=== PATIENT | male | born 1965 | race Caucasian/White ===

== ENCOUNTER 2017-09-07 18:04 | Inpatient (IN) | payer MEDICAID, OTHER ==
[~2017-09-07] VITALS: Ht 170.2 cm; Wt 78.1 kg
[~2017-09-07 18:04] MED LIST: HYDR-2533; MORP1CAP
[2017-09-07 19:54] LABS: Basophils # (auto) 0.3 uL; Eosinophils # (auto) 0 uL; Eosinophils % (auto) 0.2 % (0.0-7.0); Hemoglobin 15.1 g/dL (13.5-17.5); Lymphocytes # (auto) 2.2 uL; Mean Corpuscular Hgb Conc. 34.4 g/dL (32.0-36.0); Monocytes # (auto) 0.3 uL; Neutrophils # (auto) 3.3 uL
[2017-09-07 19:54] LABS: Urine Bacteria NONE SEEN /hpf (None Seen); Urine Blood Negative /uL (Negative); Urine Mucus MODERATE (None Seen); Urine Specific Gravity 1.032 (1.001-1.035); Urine WBC 1 /hpf (0 - 3)
[2017-09-07 19:56] LABS: Hematocrit 43.9 % (41.0-53.0); Lymphocytes % (auto) 35.9 % (10.0-50.0); Monocytes % (auto) 5.1 % (0.0-12.0); Neutrophils % (auto) 53.8 % (37.0-80.0); Nucleated Red Blood Cells % 0.2 %; Platelet Count (auto) 82 10^3/uL (140-450); Red Blood Cells 4.34 10^6/uL (4.5-5.90); Red Cell Distribution Width 15.1 % (11.8-14.3)
[2017-09-07 19:58] LABS: Mean Corpuscular Hemoglobin 34.7 pg (28.0-32.0); Mean Corpuscular Volume 100.8 fL (80.0-100.0)
[2017-09-07 20:15] LABS: Amphetamine Screen, Urine NEGATIVE (NEGATIVE); Barbiturate Scree,Urine NEGATIVE (NEGATIVE); Benzodiazephine Screen, Urine NEGATIVE (NEGATIVE); Cannabinoid Screen, Urine POSITIVE (NEGATIVE); Cocaine Screen, Urine NEGATIVE (NEGATIVE); Opiate Scree,Urine NEGATIVE (NEGATIVE); Phencyclidine Screen, Urine NEGATIVE (NEGATIVE)
[2017-09-07 20:18] LABS: Alanine Aminotransferase 127 U/L (16-61); Albumin 3.1 g/dL (3.4-5.0); Alkaline Phosphatase 103 U/L (45-117); Amylase 61 U/L (25-115); Anion Gap 9 (5-15); Aspartate Aminotransferase 238 U/L (15-37); BUN/Creatinine Ratio 14.3; Bilirubin, Total 3.3 mg/dL (0.2-1.0); Blood Urea Nitrogen 9 mg/dL (7-18); Calcium 7.4 mg/dL (8.5-10.1); Carbon Dioxide 26 mmol/L (21-32); Chloride 103 mmol/L (98-107); GFR African American 172 mL/min; GFR Non-African American 142 mL/min; Glucose 100 mg/dL (74-106); Lipase 229 U/L (73-393); Potassium 4.1 mmol/L (3.5-5.1); Sodium 138 mmol/L (136-145); Total Protein 7.3 g/dL (6.4-8.2)
[2017-09-08] MEDS ORDERED: THIAMINE INJ 100 MG, MULTIPLE VITAMIN 10 ML, FOLIC ACID 1 MG, MAGNESIUM SULF SDV 50% 8 ... IV SCH ×5 (01:15)
[2017-09-08] MEDS ORDERED: HYDROcodone-ACET 10/325MG TAB PO ONE (02:30)
[2017-09-08] MEDS: MORPHINE SULFATE 4 MG/ML SYR/VIAL IV PRN ×3 (06:15→20:44)
[2017-09-08] MEDS: ONDANSETRON HCL 4 MG/2 ML VIAL IV PRN (06:15)
[2017-09-08] MEDS ORDERED: chlordiazePOXIDE HCL 25 MG CAP PO PRN (06:30)
[2017-09-08 07:09] LABS: Basophils # (auto) 0 uL; Eosinophils # (auto) 0 uL; Hemoglobin 13.8 g/dL (13.5-17.5); Monocytes # (auto) 0.5 uL; Nucleated Red Blood Cells % 0.1 %; Platelet Count (auto) 59 10^3/uL (140-450); Red Cell Distribution Width 14.8 % (11.8-14.3)
[2017-09-08 07:11] LABS: Basophils % (auto) 0.4 % (0.0-2.0); Eosinophils % (auto) 0.7 % (0.0-7.0); Hematocrit 39.9 % (41.0-53.0); Lymphocytes # (auto) 2.7 uL; Lymphocytes % (auto) 41.7 % (10.0-50.0); Mean Corpuscular Hemoglobin 34.8 pg (28.0-32.0); Mean Corpuscular Hgb Conc. 34.7 g/dL (32.0-36.0); Mean Corpuscular Volume 100.3 fL (80.0-100.0); Neutrophils # (auto) 3.2 uL; Neutrophils % (auto) 49.2 % (37.0-80.0); Red Blood Cells 3.97 10^6/uL (4.5-5.90); White Blood Cell 6.6 10^3/uL (4.4-10.8)
[2017-09-08 07:28] LABS: Calcium 7.1 mg/dL (8.5-10.1); Potassium 3.9 mmol/L (3.5-5.1)
[2017-09-08] MEDS: LORazepam 2MG/ML-1ML VIAL IV PRN (09:13)
[2017-09-08] MEDS: PANTOPRAZOLE 40 MG/10 ML VIAL IV SCH (09:17)
[2017-09-08] MEDS: FOLIC ACID 1 MG TAB PO SCH (09:17)
[2017-09-08] MEDS: THIAMINE HCL 100 MG TAB PO SCH (09:17)
[2017-09-08] MEDS: MULTIPLE VITAMIN TAB PO SCH (09:17)
[2017-09-08 13:26] LABS: INR 1.3 (0.9-1.15); Prothrombin Time 13.7 sec (9.27-12.13)
[2017-09-08] MEDS ORDERED: FUROSEMIDE 20 MG TAB PO ONE (14:15)
[2017-09-08] MEDS ORDERED: diphenhdrAMINE HCL 50 MG/1 ML VL ONE (14:16)
[2017-09-08] MEDS ORDERED: diphenhdrAMINE HCL 50 MG/1 ML VL IV ONE (15:00)
[2017-09-08] MEDS ORDERED: MORPHINE SULFATE INJECTION 1 ML ONE ×2 (16:20→20:38)
[2017-09-08 17:32] VITALS: BP 120/82
[2017-09-08 17:42] VITALS: BP 120/82
[2017-09-08 22:00] VITALS: BP 138/81
[2017-09-09] MEDS ORDERED: MORPHINE SULFATE INJECTION 1 ML ONE ×2 (00:44→04:52)
[2017-09-09] MEDS: MORPHINE SULFATE 4 MG/ML SYR/VIAL IV PRN (00:49)
[2017-09-09] MEDS ORDERED: MORPHINE SULFATE 4 MG/ML SYR/VIAL IV PRN (03:45)
[2017-09-09 05:00] VITALS: BP 126/82
[2017-09-09] MEDS: LORazepam 2MG/ML-1ML VIAL IV PRN (05:04)
[2017-09-09 05:58] LABS: Basophils # (auto) 0.1 uL; Eosinophils # (auto) 0 uL; Monocytes # (auto) 0.3 uL; Neutrophils # (auto) 3.1 uL; Neutrophils % (auto) 63.1 % (37.0-80.0); Nucleated Red Blood Cells % 0.2 %
[2017-09-09 06:01] LABS: Basophils % (auto) 1.4 % (0.0-2.0); Hematocrit 36.5 % (41.0-53.0); Hemoglobin 12.9 g/dL (13.5-17.5); Lymphocytes # (auto) 1.4 uL; Lymphocytes % (auto) 27.9 % (10.0-50.0); Mean Corpuscular Hemoglobin 35.9 pg (28.0-32.0); Mean Corpuscular Hgb Conc. 35.4 g/dL (32.0-36.0); Mean Corpuscular Volume 101.4 fL (80.0-100.0); Monocytes % (auto) 6.6 % (0.0-12.0); Platelet Count (auto) 36 10^3/uL (140-450); Red Cell Distribution Width 14.1 % (11.8-14.3)
[2017-09-09 06:10] LABS: Calcium 7.3 mg/dL (8.5-10.1); Potassium 3.8 mmol/L (3.5-5.1)
[2017-09-09 06:16] LABS: Albumin 2.5 g/dL (3.4-5.0); BUN/Creatinine Ratio 15.7; Bilirubin, Total 4.4 mg/dL (0.2-1.0); Total Protein 5.9 g/dL (6.4-8.2)
[2017-09-09 09:00] VITALS: BP 127/79
[2017-09-09] MEDS ORDERED: MORPHINE SULFATE 8mg/ml INJ SDV IV PRN (09:15)
[2017-09-09] MEDS: ONDANSETRON HCL 4 MG/2 ML VIAL IV PRN (09:23)
[2017-09-09] MEDS: FOLIC ACID 1 MG TAB PO SCH (09:24)
[2017-09-09] MEDS: THIAMINE HCL 100 MG TAB PO SCH (09:24)
[2017-09-09] MEDS: MULTIPLE VITAMIN TAB PO SCH (09:24)
[2017-09-09] MEDS: PANTOPRAZOLE 40 MG/10 ML VIAL IV SCH (09:24)
[2017-09-09] MEDS ORDERED: FUROSEMIDE 20 MG TAB PO SCH (10:00)
[2017-09-09 11:21] VITALS: BP 127/79
[2017-09-09 12:33] VITALS: BP 135/63
[2017-09-14] MEDS ORDERED: FURO40TA4 PO (11:24)
[2017-09-14] MEDS ORDERED: POTA10TA51 PO (11:24)
== END 2017-09-09 12:35 | disposition home or self-care (01) | DRG 264 ==
LOC: ER 18:04 → OVERFLOW 18:05 → WEST WING 09-08 17:21
PROVIDERS: ADMIT Nurse Practitioner Family; ATTEND Internal Medicine
PROC: 0W9G3ZX Drainage of Peritoneal Cavity, Percutaneous Approach, Diagnostic (ICD-10-PCS; principal; 2017-09-08)
DX: K70.31 Alcoholic cirrhosis of liver with ascites (principal); D68.9 Coagulation defect, unspecified; E44.0 Moderate protein-calorie malnutrition; K72.90 Hepatic failure, unspecified without coma; K92.2 Gastrointestinal hemorrhage, unspecified; E87.1 Hypo-osmolality and hyponatremia; E88.09 Other disorders of plasma-protein metabolism, not elsewhere classified; F10.129 Alcohol abuse with intoxication, unspecified; K80.20 Calculus of gallbladder without cholecystitis without obstruction; F17.210 Nicotine dependence, cigarettes, uncomplicated; I25.10 Atherosclerotic heart disease of native coronary artery without angina pectoris; D53.9 Nutritional anemia, unspecified; R14.0 Abdominal distension (gaseous); J98.11 Atelectasis; Z80.0 Family history of malignant neoplasm of digestive organs
CPT/HCPCS: 10022; 36415; 74176; 76705; 76942; 78226; 80048; 80053; 80307; 80320; 81001; 82150; 82962; 83690; 83986; 84484; 85025; 85610; 87205; 89051; 93005; 96365; 96375; C9113; J2270; J2405

== ENCOUNTER 2017-09-14 08:03 | Inpatient (IN) | payer MEDICAID ==
[~2017-09-14] VITALS: Ht 170.2 cm; Wt 78.2 kg
[2017-09-14 09:08] LABS: Basophils # (auto) 0 uL; Basophils % (auto) 0.4 % (0.0-2.0); Eosinophils # (auto) 0.1 uL; Hemoglobin 14.6 g/dL (13.5-17.5); Lymphocytes # (auto) 1.8 uL; Neutrophils # (auto) 3.4 uL
[2017-09-14 09:10] LABS: Eosinophils % (auto) 1.5 % (0.0-7.0); Hematocrit 42.9 % (41.0-53.0); Lymphocytes % (auto) 29.1 % (10.0-50.0); Mean Corpuscular Hemoglobin 34.6 pg (28.0-32.0); Mean Corpuscular Volume 101.8 fL (80.0-100.0); Monocytes # (auto) 0.9 uL; Monocytes % (auto) 14.7 % (0.0-12.0); Neutrophils % (auto) 54.3 % (37.0-80.0); Nucleated Red Blood Cells % 0.1 %; Platelet Count (auto) 65 10^3/uL (140-450); Red Blood Cells 4.22 10^6/uL (4.5-5.90); Red Cell Distribution Width 14.7 % (11.8-14.3); White Blood Cell 6.3 10^3/uL (4.4-10.8)
[2017-09-14] MEDS ORDERED: HYDROmorphone HCL 2 MG/ML VL IV ONE (09:15)
[2017-09-14] MEDS ORDERED: ONDANSETRON HCL 4 MG/2 ML VIAL IV ONE (09:15)
[2017-09-14 09:26] LABS: Albumin 2.9 g/dL (3.4-5.0); BUN/Creatinine Ratio 9.8; Potassium 3.4 mmol/L (3.5-5.1)
[2017-09-14 09:28] LABS: Total Protein 6.9 g/dL (6.4-8.2)
[2017-09-14 09:58] LABS: Amylase 53 U/L (25-115); Lipase 190 U/L (73-393)
[2017-09-14] MEDS ORDERED: FURO40TA4 PO ×2 (11:24)
[2017-09-14] MEDS ORDERED: POTA10TA51 PO ×2 (11:24)
[2017-09-14] MEDS ORDERED: FUROSEMIDE 40 MG TAB PO ONE (11:45)
[2017-09-14] MEDS ORDERED: THIAMINE INJ 100 MG, MULTIPLE VITAMIN 10 ML, FOLIC ACID 1 MG, MAGNESIUM SULF SDV 50% 8 ... IV ONE ×5 (11:45)
[2017-09-14] MEDS ORDERED: LORazepam 2MG/ML-1ML VIAL IV PRN (11:45)
[2017-09-14] MEDS ORDERED: ALUM & MAG HYDROX-SIMETH LIQ(MAALOX) 30 ML PO PRN (11:45)
[2017-09-14] MEDS ORDERED: NITROGLYCERIN 0.4 MG SL TAB SL PRN (11:45)
[2017-09-14] MEDS ORDERED: LACTULOSE 20Gm/30ML SOLN PO ONE (11:45)
[2017-09-14] MEDS ORDERED: MORPHINE SULFATE 8mg/ml INJ SDV IV PRN (11:45)
[2017-09-14] MEDS ORDERED: POTASSIUM CHL 10 Meq TABLET PO ONE (11:45)
[2017-09-14] MEDS ORDERED: chlordiazePOXIDE HCL 25 MG CAP PO PRN (11:45)
[2017-09-14] MEDS ORDERED: DOCUSATE SOD 100 MG CAP PO PRN (11:45)
[2017-09-14] MEDS ORDERED: SPIRONOLACTONE 25 MG TAB PO ONE (11:45)
[2017-09-14] MEDS ORDERED: DEXTROSE (50%) 50ML SYRG IV PRN (11:45)
[2017-09-14] MEDS ORDERED: HYDROcodone-ACET 5/325MG TAB PO PRN (11:45)
[2017-09-14] MEDS ORDERED: ACETAMINOPHEN 325 MG TAB PO PRN (11:45)
[2017-09-14] MEDS ORDERED: TEMAZEPAM 15 MG CAP PO PRN (11:45)
[2017-09-14] MEDS: Boost Glucose Control 8 Ounces PO SCH ×2 (12:00→18:00)
[2017-09-14] MEDS ORDERED: PHYTONADIONE (VIT K)10 MG/ML 1ML VIAL SUBCUT ONE (12:00)
[2017-09-14 12:19] LABS: INR 1.32 (0.9-1.15); Prothrombin Time 13.9 sec (9.27-12.13)
[2017-09-14 13:28] VITALS: BP 134/97
[2017-09-14] MEDS: GABAPENTIN 300 MG CAP PO SCH ×2 (14:00→21:50)
[2017-09-14] MEDS ORDERED: diphenhdrAMINE HCL 50 MG/1 ML VL ONE (16:08)
[2017-09-14] MEDS ORDERED: LIDOCAINE 1% (LOCAL ANESTH.) PF 5ml SDV ONE (16:39)
[2017-09-14] MEDS: ONDANSETRON HCL 4 MG/2 ML VIAL IV PRN ×2 (16:47→22:53)
[2017-09-14 16:57] VITALS: BP 133/92
[2017-09-14] MEDS: InsuLIN REG 1unit/0.01ml Soln (100units/ml) SC SCH ×2 (17:00→22:00)
[2017-09-14] MEDS: ACCU-CHEK COMFORT CURVE STRIP VI SCH ×2 (17:00→22:10)
[2017-09-14] MEDS: MORPHINE SULFATE 8mg/ml INJ SDV IV PRN ×2 (17:00→22:53)
[2017-09-14] MEDS: SODIUM CHLOR 0.9% PF (SALINE LOCK) 10ML VIAL/SYR IV SCH ×2 (17:03→21:49)
[2017-09-14] MEDS: SPIRONOLACTONE 25 MG TAB PO SCH (18:24)
[2017-09-14] MEDS: FAMOTIDINE 20 MG TAB PO SCH (21:51)
[2017-09-14] MEDS: ATENOLOL 25 MG TAB PO SCH (21:51)
[2017-09-14 22:00] VITALS: BP 122/82
[2017-09-15] MEDS: MORPHINE SULFATE 8mg/ml INJ SDV IV PRN ×3 (04:03→15:07)
[2017-09-15] MEDS: ONDANSETRON HCL 4 MG/2 ML VIAL IV PRN ×3 (04:03→20:44)
[2017-09-15 05:30] VITALS: BP 108/74
[2017-09-15] MEDS: SODIUM CHLOR 0.9% PF (SALINE LOCK) 10ML VIAL/SYR IV SCH ×3 (06:17→22:44)
[2017-09-15] MEDS: SPIRONOLACTONE 25 MG TAB PO SCH ×2 (06:17→18:45)
[2017-09-15] MEDS: GABAPENTIN 300 MG CAP PO SCH ×3 (06:18→22:52)
[2017-09-15 06:33] LABS: Basophils # (auto) 0 uL; Basophils % (auto) 0.3 % (0.0-2.0); Eosinophils # (auto) 0.1 uL; Hemoglobin 13.1 g/dL (13.5-17.5); Monocytes # (auto) 0.8 uL; Neutrophils # (auto) 3.3 uL
[2017-09-15 06:36] LABS: Eosinophils % (auto) 1.6 % (0.0-7.0); Hematocrit 38.1 % (41.0-53.0); Lymphocytes # (auto) 1.6 uL; Mean Corpuscular Hemoglobin 35.1 pg (28.0-32.0); Mean Corpuscular Hgb Conc. 34.3 g/dL (32.0-36.0); Mean Corpuscular Volume 102.4 fL (80.0-100.0); Monocytes % (auto) 13.2 % (0.0-12.0); Neutrophils % (auto) 56.9 % (37.0-80.0); Nucleated Red Blood Cells % 0.2 %; Red Blood Cells 3.72 10^6/uL (4.5-5.90); Red Cell Distribution Width 14.2 % (11.8-14.3); White Blood Cell 5.8 10^3/uL (4.4-10.8)
[2017-09-15 06:38] LABS: Platelet Count (auto) 53 10^3/uL (140-450)
[2017-09-15 06:54] LABS: Albumin 2.5 g/dL (3.4-5.0); BUN/Creatinine Ratio 11.9; Bilirubin, Total 3.4 mg/dL (0.2-1.0); Calcium 7.2 mg/dL (8.5-10.1); Potassium 3.9 mmol/L (3.5-5.1)
[2017-09-15] MEDS: InsuLIN REG 1unit/0.01ml Soln (100units/ml) SC SCH ×3 (07:00→22:00)
[2017-09-15] MEDS: ACCU-CHEK COMFORT CURVE STRIP VI SCH ×3 (07:00→23:00)
[2017-09-15] MEDS: Boost Glucose Control 8 Ounces PO SCH ×3 (08:00→18:00)
[2017-09-15 09:00] VITALS: BP 122/69
[2017-09-15] MEDS: ATENOLOL 25 MG TAB PO SCH ×2 (09:27→22:52)
[2017-09-15] MEDS: MULTIPLE VITAMIN TAB PO SCH (09:27)
[2017-09-15] MEDS: FAMOTIDINE 20 MG TAB PO SCH ×2 (09:27→22:52)
[2017-09-15] MEDS: POTASSIUM CHL 10 Meq TABLET PO SCH (09:28)
[2017-09-15] MEDS: LACTULOSE 20Gm/30ML SOLN PO SCH (09:28)
[2017-09-15] MEDS: FUROSEMIDE 40 MG TAB PO SCH (09:28)
[2017-09-15 13:14] VITALS: BP 125/79
[2017-09-15 17:00] VITALS: BP 116/80
[2017-09-15] MEDS ORDERED: DEXTROSE (50%) 50ML SYRG IV PRN (19:45)
[2017-09-15] MEDS: HYDROcodone-ACET 10/325MG TAB PO PRN ×2 (20:44→22:44)
[2017-09-15 21:53] LABS: Urine Bacteria NONE SEEN /hpf (None Seen); Urine Blood Negative /uL (Negative); Urine Specific Gravity 1.014 (1.001-1.035); Urine WBC 1 /hpf (0 - 3)
[2017-09-15 22:00] VITALS: BP_SYST 113; BP_SYST 124; BP_DIAS 74; BP_DIAS 87
[2017-09-15 22:09] LABS: Alcohol, Urine < 3.0 mg/dL (0-5); Amphetamine Screen, Urine NEGATIVE (NEGATIVE); Barbiturate Scree,Urine NEGATIVE (NEGATIVE); Benzodiazephine Screen, Urine POSITIVE (NEGATIVE); Cannabinoid Screen, Urine NEGATIVE (NEGATIVE); Cocaine Screen, Urine NEGATIVE (NEGATIVE); Opiate Scree,Urine POSITIVE (NEGATIVE); Phencyclidine Screen, Urine NEGATIVE (NEGATIVE)
[2017-09-16] MEDS: ONDANSETRON HCL 4 MG/2 ML VIAL IV PRN ×2 (02:42→09:12)
[2017-09-16] MEDS: HYDROcodone-ACET 10/325MG TAB PO PRN ×2 (02:44→08:48)
[2017-09-16 05:52] VITALS: BP 131/82
[2017-09-16] MEDS: SPIRONOLACTONE 25 MG TAB PO SCH (06:20)
[2017-09-16] MEDS: SODIUM CHLOR 0.9% PF (SALINE LOCK) 10ML VIAL/SYR IV SCH (06:20)
[2017-09-16] MEDS: InsuLIN REG 1unit/0.01ml Soln (100units/ml) SC SCH (06:20)
[2017-09-16] MEDS: GABAPENTIN 300 MG CAP PO SCH (06:20)
[2017-09-16] MEDS: ACCU-CHEK COMFORT CURVE STRIP VI SCH (06:21)
[2017-09-16 07:01] LABS: Eosinophils # (auto) 0.1 uL; Hemoglobin 12.2 g/dL (13.5-17.5); Neutrophils # (auto) 2.3 uL
[2017-09-16 07:04] LABS: Basophils # (auto) 0.1 uL; Eosinophils % (auto) 1.9 % (0.0-7.0); Hematocrit 35.4 % (41.0-53.0); Lymphocytes # (auto) 1.3 uL; Lymphocytes % (auto) 28.2 % (10.0-50.0); Mean Corpuscular Hemoglobin 35.6 pg (28.0-32.0); Mean Corpuscular Hgb Conc. 34.5 g/dL (32.0-36.0); Monocytes # (auto) 0.7 uL; Neutrophils % (auto) 51.9 % (37.0-80.0); Nucleated Red Blood Cells % 0.4 %; Platelet Count (auto) 42 10^3/uL (140-450); Red Blood Cells 3.44 10^6/uL (4.5-5.90); Red Cell Distribution Width 13.5 % (11.8-14.3); White Blood Cell 4.5 10^3/uL (4.4-10.8)
[2017-09-16 07:34] LABS: Albumin 2.5 g/dL (3.4-5.0); BUN/Creatinine Ratio 13.4; Bilirubin, Total 6.2 mg/dL (0.2-1.0); Calcium 7.6 mg/dL (8.5-10.1); Potassium 4.3 mmol/L (3.5-5.1); Total Protein 5.8 g/dL (6.4-8.2)
[2017-09-16] MEDS: Boost Glucose Control 8 Ounces PO SCH (08:00)
[2017-09-16 09:00] VITALS: BP 114/81
[2017-09-16] MEDS: MULTIPLE VITAMIN TAB PO SCH (09:12)
[2017-09-16] MEDS: FAMOTIDINE 20 MG TAB PO SCH (09:13)
[2017-09-16] MEDS: FUROSEMIDE 40 MG TAB PO SCH (09:14)
[2017-09-16] MEDS: ATENOLOL 25 MG TAB PO SCH (09:15)
[2017-09-16] MEDS: POTASSIUM CHL 10 Meq TABLET PO SCH (09:17)
[2017-09-16] MEDS: LACTULOSE 20Gm/30ML SOLN PO SCH (09:17)
[2017-09-16 11:37] VITALS: BP 114/81
== END 2017-09-16 12:00 | disposition home or self-care (01) | DRG 254 ==
LOC: ER 08:03 → TELE 08:04 → TELE-CENTR 13:05
PROVIDERS: ADMIT Internal Medicine; ATTEND Internal Medicine
DX: K59.00 Constipation, unspecified (principal); D68.4 Acquired coagulation factor deficiency; D69.6 Thrombocytopenia, unspecified; E44.0 Moderate protein-calorie malnutrition; E88.09 Other disorders of plasma-protein metabolism, not elsewhere classified; K70.31 Alcoholic cirrhosis of liver with ascites; K72.90 Hepatic failure, unspecified without coma; E87.6 Hypokalemia; F10.239 Alcohol dependence with withdrawal, unspecified; E11.9 Type 2 diabetes mellitus without complications; F17.210 Nicotine dependence, cigarettes, uncomplicated; I25.10 Atherosclerotic heart disease of native coronary artery without angina pectoris; Z88.8 Allergy status to other drugs, medicaments and biological substances; Z79.899 Other long term (current) drug therapy; Z68.27 Body mass index [BMI] 27.0-27.9, adult
CPT/HCPCS: 10022; 36415; 76700; 76705; 80053; 80307; 80320; 81001; 82140; 82150; 82962; 83036; 83690; 83735; 85025; 85610; 87081; 93005; 94761; 96372; 96374; 96375; C1729; J2270; J2405; J3430

== ENCOUNTER 2017-09-16 21:35 | Emergency (ER) | payer MEDICAID ==
[~2017-09-16] VITALS: Ht 170.2 cm; Wt 74.8 kg
[~2017-09-16 21:35] MED LIST changes: +FURO40TA4 PO; -HYDR-2533; -MORP1CAP; +POTA10TA51 PO
[2017-09-16 22:54] LABS: Basophils # (auto) 0.1 uL; Basophils % (auto) 1.3 % (0.0-2.0); Eosinophils # (auto) 0 uL; Lymphocytes % (auto) 19.9 % (10.0-50.0); Monocytes # (auto) 0.5 uL; Neutrophils # (auto) 3.5 uL; White Blood Cell 5.2 10^3/uL (4.4-10.8)
[2017-09-16 22:56] LABS: Eosinophils % (auto) 0.9 % (0.0-7.0); Hematocrit 37.4 % (41.0-53.0); Hemoglobin 12.8 g/dL (13.5-17.5); Mean Corpuscular Hemoglobin 34.9 pg (28.0-32.0); Mean Corpuscular Hgb Conc. 34.3 g/dL (32.0-36.0); Mean Corpuscular Volume 101.5 fL (80.0-100.0); Monocytes % (auto) 10.3 % (0.0-12.0); Neutrophils % (auto) 67.6 % (37.0-80.0); Nucleated Red Blood Cells % 0.2 %; Red Blood Cells 3.68 10^6/uL (4.5-5.90); Red Cell Distribution Width 13.3 % (11.8-14.3)
[2017-09-16 22:59] LABS: Platelet Count (auto) 57 10^3/uL (140-450)
[2017-09-16 23:08] LABS: BUN/Creatinine Ratio 10.4; Calcium 8.1 mg/dL (8.5-10.1); Potassium 3.9 mmol/L (3.5-5.1)
[2017-09-16 23:10] LABS: Bilirubin, Total 6.1 mg/dL (0.2-1.0)
[2017-09-17] MEDS ORDERED: MORPHINE SULFATE 8mg/ml INJ SDV IV ONE (00:15)
[2017-09-17] MEDS ORDERED: ONDANSETRON HCL 4 MG/2 ML VIAL IV ONE (00:15)
[2017-09-17] MEDS ORDERED: cefTRIAXone 1GM/10ml IVPUSH 10 ML IV ONE (00:30)
[2017-09-17] MEDS ORDERED: SODIUM CHLORIDE 0.9% 1,000 ML IV ONE (00:30)
[2017-09-17] MEDS ORDERED: VANCOMYCIN 1GM/250ML 250 ML IV ONE (00:30)
[2017-09-17 02:40] VITALS: BP 116/64
[2017-09-17] MEDS ORDERED: LORazepam 2MG/ML-1ML VIAL IV ONE (04:15)
== END 2017-09-17 05:10 | disposition home or self-care (01) ==
LOC: ER 21:35
DX: L03.311 Cellulitis of abdominal wall (principal); E87.1 Hypo-osmolality and hyponatremia; K70.31 Alcoholic cirrhosis of liver with ascites; K72.90 Hepatic failure, unspecified without coma; F17.210 Nicotine dependence, cigarettes, uncomplicated; I25.10 Atherosclerotic heart disease of native coronary artery without angina pectoris; Z88.6 Allergy status to analgesic agent
CPT/HCPCS: 36415; 74176; 80053; 85025; 87040; 96365; 96375; 99285; J2060; J2270; J2405; J3370